=== PATIENT | male | born 1970 | race Caucasian/White ===

== ENCOUNTER 2022-06-27 19:10 | Emergency (ER) | payer OTHER, SELFPAY ==
[2022-06-27 19:11] VITALS: BP 207/120; PULSE 87; RESP 15; TEMP 36.6; O2SAT 98; BMI 37.3
--- NOTE | 2022-06-27 19:43 | EDS_ITS ---
HPI History of Present Illness Chief Complaint: Laceration Detail of Chief Complaint: Left thumb laceration Onset/Context/Timing Onset: Days Narrative Narrative: Patient presents with laceration to the left thumb. He states he was cleaning a knife and it slipped slicing his left thumb. He is left-hand dominant. He is unsure of his last tetanus update. [facility] Medical History no medical history no medical history Home Medications cephalexin 500 mg capsule 500 mg PO Q12 #14 caps 06/27/22 [Rx Last Taken Unknown] Allergy/AdvReac Type Severity Reaction Status Date / Time No Known Allergies Allergy Verified 06/27/22 19:13 Social History Smoking Status: Current some day smoker tobacco type: cigars ROS ROS ED Constitutional Constitutional ED: Denies chills or fever(s) Eyes Eyes: Denies change in vision or discharge from eye(s) ENT ENT ED: Denies discharge from eye(s), rhinorrhea or sore throat Cardiovascular Cardiovascular: Denies chest pain or palpitations Respiratory/Chest Respiratory/Chest: Denies cough or dyspnea Gastrointestinal Gastrointestinal: Denies abdominal pain, diarrhea, nausea or vomiting Musculoskeletal Musculoskeletal: Reports extremity pain; Denies back pain Integumentary Reports other Details: Left thumb laceration ; Denies Abrasions or rash Neurologic Neurologic: Denies headache(s) or weakness Psychiatric Psychiatric: Denies anxiety or depression Allergic/Immunologic Allergic/Immunologic ED: Denies lip swelling or urticaria EXAM Physical Exam Const Vital Signs: 06/27/22 19:11 Temperature 97.9 F Temperature Source Temporal Pulse Rate 87 Respiratory Rate 15 Blood Pressure 207/120 H Blood Pressure Mean 149 Pulse Ox 98 Oxygen Delivery Method Room Air Positive well nourished and well developed General Appearance ED: well developed HEENT Reports normocephalic and head/scalp atraumatic Eyes PERRL and EOMs intact bilaterally Neck supple Chest Wall inspection of chest normal and palpation of chest normal Resp normal respiratory effort and clear to auscultation bilaterally Cardio regular rate and regular rhythm GI Palpation: soft Back/Spine no CVA tenderness Extremity Extremity Narrative: 2 cm laceration across the extensor surface of the left thumb crossing the interphalangeal joint. Arterial bleeding is noted. Neuro oriented x3 and no sensory deficits noted Sensorium / Orientation: alert Motor Exam: strength 5/5 throughout Psych mental status grossly normal Skin Skin Narrative: Laceration as noted above. MDM MDM MDM Narrative Medical decision making narrative: Pressure dressing was placed to the left thumb. Digital block was performed with 2 cc 1% lidocaine. Tourniquet is placed around the base of the left thumb. 4-0 Vicryl stitch is placed across the center of the laceration where arterial bleeding had been noted. This is tied off. Skin is closed with 3 simple interrupted sutures of 5-0 nylon. When tourniquet is removed bleeding is well controlled. Dressing is clean and dry on repeat check. Because patient's initial injury was 2 days ago and did require laceration I will treat him with Keflex. Repeat blood pressure this time is 178/118. has a blood pressure cuff at home and will keep a journal. Patient was instructed to follow-up for his blood pressure. Discharge Plan Triage Chief Complaint: Laceration ED Provider: Oly Verde Dx/Rx/DC Orders Clinical Impression: Laceration of thumb, Hypertension Instructions: ED Hypertension, To Be Confirmed, ED Laceration: All Closures Prescriptions: New cephalexin 500 mg capsule 500 mg PO Q12 Qty: 14 0RF Primary Care Provider: Care Physician,No Primary Referrals: Lynda Maddox MD [Med Staff - [facility]] - As soon as possible Care Physician,No Primary [Primary Care Provider] - Activity Restrictions/Additional Instructions: Please have sutures removed in 1 week. Please keep a journal of your blood pressure recordings and take this to your doctor's appointment with you. Disposition Disposition: Home, Self Care
[2022-06-27] MEDS: Lidocaine 1% (20 ml mdv) 20 ML Vial INFILT (19:45)
[2022-06-27] MEDS: Diphth,Pertuss(Acell),Tet Vac 0.5 ML Vial IM (19:46)
[2022-06-27] MEDS: Cephalexin 250 MG Capsule 500 MG PO (20:29)
== END 2022-06-27 21:30 | disposition home or self-care (01) ==
PROVIDERS: Emergency Provider Emergency Medicine; Visit Provider Emergency Medicine
DX: S61.012A Laceration without foreign body of left thumb without damage to nail, initial encounter (principal); I10 Essential (primary) hypertension; F17.290 Nicotine dependence, other tobacco product, uncomplicated; W26.0XXA Contact with knife, initial encounter
CPT/HCPCS: 12001; 90715; 96372; 99283